=== PATIENT | female | born 2000 | race Caucasian/White ===

== ENCOUNTER 2023-07-09 18:26 | Emergency (ER) | payer MEDICAID, SELFPAY ==
[2023-07-09 18:37] VITALS: BP 123/63; PULSE 101; RESP 18; TEMP 36.4; O2SAT 98
[2023-07-09 19:43] VITALS: BP 117/70; PULSE 94; RESP 20; O2SAT 100
[2023-07-09 19:47] VITALS: O2SAT 100
--- NOTE | 2023-07-09 19:50 | PC.NURSE ---
Noted no uterine CTX activity upon palpation. Pt stated pain only on lower left side and only noticed when patient is coughing. This information was reported to her RN that was in the room with the patient.
[2023-07-09 20:32] LABS: Influenza A QL RT-PCR Negative (Negative); Influenza B QL RT-PCR Negative (Negative); RSV RNA, RT-PCR Positive (Negative); SARS-CoV-2 RNA PCR Negative (Negative)
[2023-07-09 20:38] VITALS: BP 100/67; PULSE 95; RESP 20; O2SAT 99
--- NOTE | 2023-07-09 21:05 | ED.GENADULT ---
HPI - General Adult General Chief complaint: Upper Respiratory Infection Stated complaint: sharp pains when breathing. Time Seen by Provider: 07/09/23 20:55 History of Present Illness HPI narrative: patient 22-year-old female who presents emergency department with chief complaint of cough. Patient reports that she has had a runny nose a little bit of a cough that is nonproductive of mucus. Patient states that she has been using her inhaler and reports that she has had some cramping in her abdomen with this. The patient is approximately 20 weeks and reports that she was seen by OB here in the ER with good heart tones and no contractions present. Patient denies loss of fluid denies vaginal bleeding denies shortness of breath reports that she has had multiple individuals at work have been sick and her significant other also reports that he has been sick recently as well Related Data Allergies Allergy/AdvReac Type Severity Reaction Status Date / Time No Known Allergies Allergy Verified 07/09/23 18:27 Review of Systems Review of Systems: A 10 system review of systems was completed on the patient and is negative except for what is stated in the HPI. Nursing and ancillary documentation was reviewed. Exam Narrative: GENERAL: Well-appearing, well-nourished, and in no acute distress. HEAD: Normocephalic, atraumatic. EYES: PERRLA and EOMI. ENT: Nares clear, no rhinorrhea or epistaxis. Mucous membranes moist. NECK: Supple. CHEST: Clear to auscultation. No respiratory distress. HEART: Regular rate and rhythm. No murmur heard. Normal peripheral pulses. ABDOMEN: Soft, nontender, nondistended, normal active bowel sounds. EXTREMITIES: Normal range of motion. No edema. SKIN: Warm, dry, no rash. NEURO: No focal deficits. Alert and oriented x3. PSYCH: Normal mood and affect. Course Vital Signs Vital signs: Vital Signs Temperature 36.4 C 07/09/23 18:37 Pulse Rate 101 H 07/09/23 18:37 Respiratory Rate 18 07/09/23 18:37 Blood Pressure 123/63 07/09/23 18:37 Pulse Oximetry 98 07/09/23 18:37 Oxygen Delivery Room Air 07/09/23 18:37 Temperature 36.4 C 07/09/23 18:37 Pulse Rate 95 07/09/23 20:38 Respiratory Rate 20 07/09/23 20:38 Blood Pressure 100/67 07/09/23 20:38 Pulse Oximetry 99 07/09/23 20:38 Oxygen Delivery Room Air 07/09/23 19:47 Medical Decision Making MDM Narrative Medical decision making narrative: differential diagnosis includes viral syndrome, COVID, flu, RSV the patient was seen by the OB nurse and had cardiac activity done and was monitored for contractions these showed no abnormalities the patient is positive for RSV and has stable vital signs is saturating 99% on room air is afebrile respiratory rates not tachypneic and blood pressure is good heart rate is 95. The patient was instructed to symptomatic care for RSV Vital Signs Vital Signs: Vital Signs Temperature 36.4 C 07/09/23 18:37 Pulse Rate 101 H 07/09/23 18:37 Respiratory Rate 18 07/09/23 18:37 Blood Pressure 123/63 07/09/23 18:37 Pulse Oximetry 98 07/09/23 18:37 Oxygen Delivery Room Air 07/09/23 18:37 Temperature 36.4 C 07/09/23 18:37 Pulse Rate 95 07/09/23 20:38 Respiratory Rate 20 07/09/23 20:38 Blood Pressure 100/67 07/09/23 20:38 Pulse Oximetry 99 07/09/23 20:38 Oxygen Delivery Room Air 07/09/23 19:47 Lab Data Labs: Lab Results 07/09/23 Range/Units 19:50 Influenza A (RT-PCR) Negative (Negative) Influenza B (RT-PCR) Negative (Negative) RSV (RT-PCR) Positive A (Negative) SARS-CoV-2 RNA (RT-PCR) Negative (Negative) Discharge Plan Discharge Clinical Impression: Upper respiratory infection, RSV infection Patient Disposition: Home, Self-Care Condition: Stable Instructions: Antibiotic Form, Upper Respiratory Infection (ED), Viral Syndrome (ED), RSV (Respiratory Syncytial Vi
[2023-07-09 21:22] VITALS: BP 129/72; PULSE 99; RESP 20; O2SAT 99
== END 2023-07-09 21:22 | disposition home or self-care (01) ==
PROVIDERS: Emergency Provider Emergency Medicine
DX: O99.512 Diseases of the respiratory system complicating pregnancy, second trimester (principal); J06.9 Acute upper respiratory infection, unspecified; B97.4 Respiratory syncytial virus as the cause of diseases classified elsewhere; Z3A.20 20 weeks gestation of pregnancy; Z20.822 Contact with and (suspected) exposure to COVID-19
CPT/HCPCS: 87637; 99283

== ENCOUNTER 2023-07-12 23:29 | Emergency (ER) | payer MEDICAID, SELFPAY ==
--- NOTE | ~2023-07-12 | XR_ITS ---
Portable chest x-ray Comparison: None Clinical History: Fever Findings: Lungs are clear, without focal consolidation or pleural effusion. Cardiomediastinal silho uette is unremarkable. Bones and soft tissues are unremarkable. Impression: Normal chest. Reviewed, dictated and finalized at location . TING ADVISER Impression: Normal chest.
[2023-07-12 23:30] VITALS: BP 114/57; PULSE 126; RESP 20; TEMP 38.3; O2SAT 97
[2023-07-13] LABS: Basophils Percent Auto 0.2 % (0.2-1.2); Eosinophils Percent Auto 0.2 % (0-4.4); Hematocrit 32.6 % (37.0-47.0); Hemoglobin 10.4 g/dL (12.0-15.0); Immature Granulocyte Absolute 0.04 K/mm3 (0.00-0.031); Immature Granulocyte Percent A 0.7 % (0-0.5); Lymphocytes Absolute Auto 0.66 K/mm3 (0.9-3.2); Lymphocytes Percent Auto 11.3 % (18.3-44.2); Mean Corpuscular HGB Conc 31.9 g/dl (32-36); Mean Corpuscular Hemoglobin 25.7 pg (26-34); Mean Corpuscular Volume 80.7 fl (80-100); Mean Platelet Volume 10.4 fl (7.4-10.4); Monocytes Absolute Auto 0.4 K/mm3 (0.1-0.6); Monocytes Percent Auto 7.4 % (2.6-8.5); Neutrophils Absolute Auto 4.7 K/mm3 (1.3-6.7); Neutrophils Percent Auto 80.2 % (45.5-73.1); Platelet Count Result 218 k/mm3 (150-375); Red Blood Count 4.04 M/mm3 (4.2-5.4); Red Cell Distribution Width 14.6 % (11.5-14.5); White Blood Count 5.9 K/mm3 (4.5-10.0)
[2023-07-13] MEDS: ACETAMINOPHEN 500 MG TABLET 1000 MG PO
--- NOTE | 2023-07-13 | ECG_ITS ---
Measurements Intervals Mayo Rate: 113 P: 9 GA: 157 QRS: 89 QRSD: 83 T: 15 QT: 317 QTc: 435 Interpretive Statements SINUS TACHYCARDIA NO PREVIOUS ECG AVAILABLE FOR COMPARISON Electronically Signed On 07-13-2023 15:11:57 HOSPITAL RECEPTIONIST by Sally Hall M.D.
[2023-07-13] MEDS: SODIUM CHLORIDE 0.9% IV 2,000 ML 999 ML IV CONT (00:01)
[2023-07-13 00:07] VITALS: BP 119/59; PULSE 118; RESP 15; TEMP 38.3; O2SAT 100
[2023-07-13 00:15] LABS: Alanine Aminotransferase 12 U/L (6-35); Albumin Level 3.4 g/dL (3.5-5.1); Alkaline Phosphatase 87 U/L (38-126); Anion Gap 8 mmol/L (8-16); Aspartate Amino Transferase 22 U/L (14-36); Bilirubin,Total 0.3 mg/dL (0.2-1.3); Blood Urea Nitrogen 8 mg/dL (7-17); Calcium 8.3 mg/dL (8.4-10.2); Carbon Dioxide 18 mmol/L (22-30); Chloride 107 mmol/L (98-107); Estimated CRCL calculation 124 ml/min; Estimated Glomerular Filt Rate > 60; Glucose 106 mg/dL (65-110); Potassium 3.7 mmol/L (3.4-5.0); Sodium 133 mmol/L (137-145)
[2023-07-13 00:30] LABS: Influenza A QL RT-PCR Positive (Negative); Influenza B QL RT-PCR Negative (Negative); RSV RNA, RT-PCR Positive (Negative); SARS-CoV-2 RNA PCR Negative (Negative)
[2023-07-13 00:41] VITALS: RESP 16; O2SAT 100
[2023-07-13 00:52] LABS: Appearance Urine Cloudy (Clear); Bacteria Urine Rare /hpf; Bilirubin Urine Negative (Negative); Blood Urine Negative (Negative); Color Urine Yellow (Yellow); Glucose Urine UA Negative (Negative); Ketones Urine 1+ mg/dL (Negative); Leukocyte Esterase Ur 1+ LEU/UL (Negative); Nitrate Urine Negative (Negative); Non Pathogenic Casts 0-2; Protein Urine Trace mg/dL (Negative); RBC Urine 0-2 /hpf (0-2); Specific Grav Ur 1.019 (1.001-1.035); Squamous Epithelial Cell Urine Few /hpf (Few); pH Urine 7.5 (5.0-9.0)
[2023-07-13 00:57] LABS: Add Urine Microscopic? YES
--- NOTE | 2023-07-13 01:15 | ED.GENADULT ---
HPI - General Adult General Chief complaint: Fever Stated complaint: RSV+, decreased movement Time Seen by Provider: 07/12/23 23:47 History of Present Illness HPI narrative: This is a 22-year-old female presenting ED with chief complaint of decreased movement. Patient diagnosed with RSV several days ago. However she is still having fevers, headaches, and body aches. Today she felt like she had decreased movement. mild intermittent abdominal pain. No vaginal discharge irritation or bleeding. Related Data Allergies Allergy/AdvReac Type Severity Reaction Status Date / Time No Known Allergies Allergy Verified 07/09/23 18:27 Exam Narrative: APPEARANCE: No apparent distress. Head: atraumatic. EYES: EOMI, NOSE: Atraumatic NECK: Trachea midline RESPIRATORY: No increased rate of breathing , clear to auscultation CARDIOVASCULAR: tachycardic ABDOMINAL: gravid uterus to the umbilicus, no guarding tenderness rebound MUSCULOSKELETAl: No obvious deformities NEURO: Alert. Moving 4/4 extremities SKIN:: Warm, dry. Normal color PSYCHIATRIC: Normal affect Point of care OB US showed a heart rate of 158 with spontaneous movement. Course Vital Signs Vital signs: Vital Signs Temperature 100.9 F H 07/12/23 23:30 Pulse Rate 126 H 07/12/23 23:30 Respiratory Rate 20 07/12/23 23:30 Blood Pressure 114/57 L 07/12/23 23:30 Pulse Oximetry 97 07/12/23 23:30 Oxygen Delivery Room Air 07/12/23 23:30 Temperature 101 F H 07/13/23 00:07 Pulse Rate 118 H 07/13/23 00:07 Respiratory Rate 16 07/13/23 00:41 Blood Pressure 119/59 L 07/13/23 00:07 Pulse Oximetry 100 07/13/23 00:41 Oxygen Delivery Room Air 07/12/23 23:30 Medical Decision Making MDM Narrative Medical decision making narrative: -Course: 22-year-old female presenting with flu-like symptoms and decreased movement. Patient was found to have RSV flu and a urinary tract infection. Will be treated with Tamiflu for the flu and Keflex for the UTI. Point of care OB ultrasound revealing normal heart rate at spontaneous movement. On re-evaluation the patient's vital signs had improved. She states she is feeling better overall. 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 lives with her boyfriend's grandmother -Independent interpretation of studies: COVID and flu positive. UTI indicative of infection. Swelling present is acceptable limits. Chest x-ray normal. -Interventions: 2 L normal saline -Shared decision making / Disposition: Discharged -RX: Tamiflu, Keflex, Tylenol Vital Signs Vital Signs: Vital Signs Temperature 100.9 F H 07/12/23 23:30 Pulse Rate 126 H 07/12/23 23:30 Respiratory Rate 20 07/12/23 23:30 Blood Pressure 114/57 L 07/12/23 23:30 Pulse Oximetry 97 07/12/23 23:30 Oxygen Delivery Room Air 07/12/23 23:30 Temperature 101 F H 07/13/23 00:07 Pulse Rate 118 H 07/13/23 00:07 Respiratory Rate 16 07/13/23 00:41 Blood Pressure 119/59 L 07/13/23 00:07 Pulse Oximetry 100 07/13/23 00:41 Oxygen Delivery Room Air 07/12/23 23:30 Lab Data 07/12/23 23:56 07/12/23 23:56 Labs: Lab Results 07/12/23 07/12/23 07/13/23 Range/Units 23:49 23:56 00:34 WBC 5.9 (4.5-10.0) K/mm3 RBC 4.04 L (4.2-5.4) M/mm3 Hgb 10.4 L (12.0-15.0) g/dL Hct 32.6 L (37.0-47.0) % MCV 80.7 (80-100) fl MCH 25.7 L (26-34) pg MCHC 31.9 L (32-36) g/dl RDW 14.6 H (11.5-14.5) % Plt Count 218 (150-375) k/mm3 MPV 10.4 (7.4-10.4) fl Immature Gran % (Auto) 0.7 H (0-0.5) % Neut % (Auto) 80.2 H (45.5-73.1) % Lymph % (Auto) 11.3 L (18.3-44.2) % Harrison % (Auto) 7.4 (2.6-8.5) % Eos
[2023-07-13] MEDS: CEPHALEXIN 500 MG CAPSULE PO (01:27)
[2023-07-13] MEDS: OSELTAMIVIR PHOSPHATE 75 MG CAPSULE PO (01:27)
[2023-07-13 01:29] VITALS: BP 101/65; PULSE 104; RESP 15; TEMP 37.6; O2SAT 100
== END 2023-07-13 01:50 | disposition home or self-care (01) ==
PROVIDERS: Emergency Provider Emergency Medicine
DX: O99.512 Diseases of the respiratory system complicating pregnancy, second trimester (principal); J22 Unspecified acute lower respiratory infection; B97.4 Respiratory syncytial virus as the cause of diseases classified elsewhere; J11.1 Influenza due to unidentified influenza virus with other respiratory manifestations; O23.42 Unspecified infection of urinary tract in pregnancy, second trimester; N39.0 Urinary tract infection, site not specified; Z3A.24 24 weeks gestation of pregnancy; Z20.822 Contact with and (suspected) exposure to COVID-19
CPT/HCPCS: 36415; 71045; 80053; 81001; 85025; 87086; 87637; 93005; 96360; 96361; 99284; A9270; J7030

== ENCOUNTER 2023-07-19 11:18 | Emergency (ER) | payer MEDICAID, SELFPAY ==
[2023-07-19 11:31] VITALS: BP 92/58; PULSE 94; RESP 16; TEMP 36.7; O2SAT 99
--- NOTE | 2023-07-19 11:49 | ED.GENADULT ---
HPI - General Adult General Chief complaint: Upper Respiratory Infection Stated complaint: Work release Time Seen by Provider: 07/19/23 11:43 Source: patient, RN notes reviewed and old records reviewed Mode of arrival: ambulatory Limitations: no limitations History of Present Illness HPI narrative: Patient patient presents today requesting a note to return to work. She was seen last week on 07/12/2012 in the ER at [facility] and was diagnosed with RSV, influenza a, and UTI. She was given Tamiflu and Keflex. She did not roll picker the Tamiflu, but has taken the Keflex. States all of her symptoms have resolved. She is no longer running a fever. Her work states she needs a note to return. She works at [employer]. She is not currently taking it any [id number] medication. She is currently approximately 26 weeks . Related Data Allergies Allergy/AdvReac Type Severity Reaction Status Date / Time No Known Allergies Allergy Verified 07/19/23 11:36 Review of Systems Review of Systems: CONSTITUTIONAL: Denies body aches, fever, chills, or sweats. EYES: Denies visual changes, redness, or discharge. ENT: Denies rhinorrhea, congestion, sore throat, or otalgia. CARDIOVASCULAR: Denies chest pain, palpitations, or edema. RESPIRATORY: Denies cough or dyspnea. GASTROINTESTINAL: Denies abdominal pain, nausea, vomiting, or diarrhea. GENITOURINARY: Denies dysuria or hematuria. SKIN: Denies rash, itching, or wounds. MUSCULOSKELETAL: Denies back pain, joint pain, or myalgia. NEUROLOGIC: Denies headache, numbness, tingling, or weakness. PSYCH: Denies depression or anxiety. PMFSH Comments At time of signature, I have reviewed and agree with nursing past medical, surgical, social and family history unless otherwise noted. Please see nursing chart for further information. There is no relevant family history pertinent to the presenting complaint Exam Narrative: GENERAL: Well-appearing, well-nourished, and in no acute distress. HEAD: Normocephalic, atraumatic. EYES: EOMI. No redness or drainage. Conjunctivae normal. ENT: Mucous membranes pink and moist. Nares clear. No rhinorrhea. TMs normal bilaterally. Throat normal. Uvula midline. NECK: Normal AROM. Supple. No lymphadenopathy. CHEST: No respiratory distress. Clear to auscultation. HEART: Regular rate and rhythm. No murmur appreciated. EXTREMITIES: Normal range of motion. No edema. SKIN: Warm, dry, no rash. Capillary refill normal. Normal skin turgor. NEURO: No focal deficits. Alert and oriented x3. Gait steady. PSYCH: Normal affect. No signs of depression or anxiety. Course Course Level of Care: Express Care Visit Vital Signs Vital signs: Vital Signs Temperature 98.0 F 07/19/23 11:31 Pulse Rate 94 07/19/23 11:31 Respiratory Rate 16 07/19/23 11:31 Blood Pressure 92/58 L 07/19/23 11:31 Pulse Oximetry 99 07/19/23 11:31 Oxygen Delivery Room Air 07/19/23 11:31 Temperature 98.0 F 07/19/23 11:31 Pulse Rate 94 07/19/23 11:31 Respiratory Rate 16 07/19/23 11:31 Blood Pressure 92/58 L 07/19/23 11:31 Pulse Oximetry 99 07/19/23 11:31 Oxygen Delivery Room Air 07/19/23 11:31 Reviewed Medical Decision Making MDM Narrative Medical decision making narrative: Patient's symptoms have resolved. Work note will be provided. Anticipatory guidance given. Differential Diagnosis Differential Diagnosis: RSV, influenza, UTI Vital Signs Vital Signs: Vital Signs Temperature 98.0 F 07/19/23 11:31 Pulse Rate 94 07/19/23 11:31 Respiratory Rate 16 07/19/23 11:31 Blood Pressure 92/58 L 07/19/23 11:31 Pulse Oximetry 99 07/19/23 11:31 Oxygen Delivery Room Air 07/19/23 11:31 Temperature 98.0 F 07/19/23 11:31 Pulse Rate 94 07/19/23 11:31 Respiratory Rate 16 07/19/23 11:31 Blood Pressure 92/58 L 07/19/23 11:31 Pulse Oximetry 99 07/19/23 11:31 Oxygen Delivery Room Air 07/19/23 11:3
== END 2023-07-19 11:56 | disposition home or self-care (01) ==
PROVIDERS: Emergency Provider Nurse Practitioner
DX: Z02.79 Encounter for issue of other medical certificate (principal); Z3A.26 26 weeks gestation of pregnancy
CPT/HCPCS: 99211; G0463